=== PATIENT | male | born 1950 | race Two or more races ===

== ENCOUNTER 2020-05-07 14:18 | Outpatient (CLI) | payer OTHER ==
[~2020-05-07] VITALS: Ht 167.6 cm; Wt 81.2 kg
[2020-05-07] MEDS ORDERED: COZAAR100 MG (14:34)
[2020-05-07] MEDS ORDERED: NORVASC2.5 M1 (14:35)
[2020-05-07] MEDS ORDERED: TOPROL XL50 M1 (14:35)
[2020-05-07] MEDS ORDERED: FLONASE16 GM NASAL (15:00)
[2020-05-07] MEDS ORDERED: NEILMED SINUS1 EAC1 NASAL (15:01)
[2020-05-07] MEDS ORDERED: ZYRTEC10 M3 PO (15:02)
[2020-05-07] MEDS ORDERED: CEFDINIR300 MG PO (15:03)
== END 2020-05-07 15:00 | disposition home or self-care (01) ==
LOC: OFIC 805 14:18
PROVIDERS: ATTEND Otolaryngology
DX: J32.8 Other chronic sinusitis (principal); J30.89 Other allergic rhinitis; R09.81 Nasal congestion

== ENCOUNTER 2020-07-10 15:24 | Outpatient (CLI) | payer OTHER ==
[~2020-07-10 15:24] MED LIST: CEFDINIR300 MG PO; COZAAR100 MG; FLONASE16 GM NASAL; NEILMED SINUS1 EAC1 NASAL; NORVASC2.5 M1; TOPROL XL50 M1; ZYRTEC10 M3 PO
== END 2020-07-10 16:00 | disposition home or self-care (01) ==
LOC: OFIC 805 15:24
PROVIDERS: ATTEND Otolaryngology
DX: R09.81 Nasal congestion (principal); J30.89 Other allergic rhinitis

== ENCOUNTER 2021-01-14 10:05 | Outpatient (CLI) | payer OTHER | END 2021-01-14 11:42 | disposition home or self-care (01) | LOC: OFIC 805 10:05 | PROVIDERS: ATTEND Otolaryngology Otology & Neurotology | DX: J32.4 Chronic pansinusitis (principal); R09.81 Nasal congestion ==

== ENCOUNTER 2021-03-13 11:58 | Outpatient (CLI) | payer OTHER | END 2021-03-13 14:03 | disposition home or self-care (01) | LOC: OFIC 805 11:58 | PROVIDERS: ATTEND Otolaryngology | DX: J30.89 Other allergic rhinitis (principal); R09.81 Nasal congestion; J32.4 Chronic pansinusitis ==